=== PATIENT | female | born 1945 | race Caucasian/White ===

== ENCOUNTER → 2016-09-19 14:30 | Outpatient (CLI) | payer MEDICARE, OTHER ==
[2014-08-05 07:29] VITALS: BMI 34.6
[~2016-09-19 14:30] MED LIST: ASPIRIN EC81 MG PO; CALCIUM 600+D T1 TA1 PO; COREG 3.1253.125 MG PO; FEXOFENADINE H180 MG PO; FIBER LAXATIVE500 MG PO; LASIX40 MG PO; LISINOPRIL5 MG PO; LORTAB 5/500 TA1 TA2 PO; MIRALAX17 GM PO; MULTI-DAY VITAM1 TAB PO; NEXIUM40 MG PO; NORCO 10/325 TA1 TA1 PO; POTASSIUM99 M1 PO; PRILOSEC20 MG PO; ULTRAM50 MG PO; WELCHOL625 MG PO
== END | disposition home or self-care (01) ==
LOC: D.MAMMO 11:30
DX: Z12.31 Encounter for screening mammogram for malignant neoplasm of breast (principal)

== ENCOUNTER → 2016-11-01 10:49 | Outpatient (CLI) | payer MEDICARE, OTHER ==
[2014-08-05 07:29] VITALS: BMI 34.6
== END | disposition home or self-care (01) ==
LOC: D.US 10:49
DX: R59.9 Enlarged lymph nodes, unspecified (principal)

== ENCOUNTER → 2017-03-12 18:06 | Outpatient (CLI) | payer MEDICARE, OTHER ==
[2014-08-05 07:29] VITALS: BMI 34.6
== END | disposition home or self-care (01) ==
LOC: D.LABREF 18:06
DX: R22.9 Localized swelling, mass and lump, unspecified (principal)

== ENCOUNTER 2018-12-17 16:49 | Emergency (ER) | payer MEDICARE, OTHER ==
[~2018-12-17] VITALS: Ht 167.6 cm; Wt 91.4 kg
[2018-12-17 16:53] VITALS: Ht 167.6 cm; Wt 91.4 kg
[2018-12-17 17:20] LABS: BASOPHILS 0.5 % (0-2); EOSINOPHILS 2.4 % (0-7); HEMATOCRIT 38.2 % (36.0-48.0); HEMOGLOBIN 12.8 g/dL (12-16); IMMATURE GRANULOCYTES 0.2 % (0-5); LYMPHOCYTES 40.1 % (15-50); MCH 30.1 pg (26.0-34.0); MCHC 33.5 g/dL (31.0-37.0); MCV 89.9 fL (80.0-100.0); MONOCYTES 9.9 % (2-11); NEUTROPHILS 46.9 % (40-80); PLATELET COUNT 278 10x3/uL (130-400); RBC 4.25 10x6/uL (4.00-5.40); RDW 13.5 % (11.5-14.5); WBC 8.3 10x3/uL (4.8-10.8)
[2018-12-17 17:30] LABS: INR 0.99 (0.85-1.17); PROTIME 12.6 SECONDS (11.6-15.0)
[2018-12-17 17:38] LABS: ALBUMIN 3.4 g/dL (3.4-5.0); ALKALINE PHOSPHATASE 148 U/L (46-116); ALT (SGPT) 18 U/L (10-68); BILIRUBIN - TOTAL 0.31 mg/dL (0.2-1.3); CALC OSMOLALITY 284 mosm/kg (275-300); CALCIUM 8.9 mg/dL (8.5-10.1); CARBON DIOXIDE 30.6 mmol/L (21.0-32.0); CHLORIDE - SERUM 105 mmol/L (98-107); CREATININE - SERUM 0.9 mg/dL (0.6-1.3); GLUCOSE 114 mg/dL (74-106); POTASSIUM - SERUM 4.1 mmol/L (3.5-5.1); PROTEIN - SERUM 6.6 g/dL (6.4-8.2); SODIUM 142 mmol/L (136-145); UREA NITROGEN 14 mg/dL (7-18); eGFR NON AFRICAN AMERICAN 65 mL/min (90-120)
[2018-12-17 17:53] LABS: CKMB 0.5 U/L (0.0-3.6); CREATINE KINASE 55 UL (21-215); MAGNESIUM - SERUM 1.9 mg/dL (1.8-2.4)
[2018-12-17 17:56] LABS: TROPONIN-I < 0.017 ng/mL (0.000-0.060)
[2018-12-17] MEDS ORDERED: VALTREX1000 MG PO (19:03)
[2018-12-17] MEDS ORDERED: PREDNISONE50 MG PO (19:03)
[2018-12-17 19:26] VITALS: BP 154/69
== END 2018-12-17 19:27 | disposition home or self-care (01) ==
LOC: D.ER 16:49
PROVIDERS: Family Medicine
DX: G51.0 Bell's palsy (principal); I50.9 Heart failure, unspecified